=== PATIENT | female | born 1960 | race Caucasian/White ===

== ENCOUNTER 2017-02-03 09:09 | Emergency (ER) | payer OTHER ==
[2017-02-03 09:34] VITALS: BMI 30.2
[2017-02-03] MEDS ORDERED: Morphine 4 mg/ml ISec IVP STA (09:48)
[2017-02-03 09:57] VITALS: RESP 18; TEMP 98.2; O2SAT 100
[2017-02-03 10:12] LABS: PH,URINE 6.5 (4.7-8.0); URINE BILIRUBIN NEGATIVE (NEGATIVE); URINE BLOOD MODERATE (NEGATIVE); URINE GLUCOSE (UA) NEGATIVE (NEGATIVE); URINE KETONE NEGATIVE (NEGATIVE); URINE LEUKOCYTE ESTERASE SMALL Leu/uL (NEGATIVE); URINE PROTEIN NEGATIVE mg/dL (<30 mg/dL); URINE UROBILINOGEN 0.2 E.U./dL (<1 E.U./dL)
[2017-02-03 10:13] LABS: BASO # 0.02 K/mm3 (0.0-2.0); BASO % 0.4 % (0.0-3.0); EOS # 0.1 (0.0-0.7); EOS % 1.1 % (1.5-5.0); GRAN # 2.96 (1.4-6.5); GRAN % 52.4 % (50.0-68.0); HEMATOCRIT 40.8 % (36.0-48.0); LYMPH # 2.1 (1.2-3.4); LYMPH % 37.9 % (22.0-35.0); MEAN CELL VOLUME 89.3 fl (80.0-105.0); MEAN CORPUSCULAR HEMOGLOBIN 30.6 pg (25.0-35.0); MEAN CORPUSCULAR HGB CONC 34.3 g/dl (31.0-37.0); MEAN PLATELET VOLUME 9.5 fl (7.0-11.0); MONO # 0.5 (0.1-0.6); MONO % 8.2 % (1.0-6.0); RED CELL DISTRIBUTION WIDTH 12.6 % (11.5-14.5); URINE APPEARANCE SLIGHT-CLOUDY (CLEAR); URINE COLOR LIGHT YELLOW (YELLOW); WHITE BLOOD COUNT 5.6 10^3/ul (4.5-11.0)
[2017-02-03 10:23] LABS: ALB/GLOB RATIO 1.3 (1.1-1.8); ALKALINE PHOSPHATASE 78 U/L (38-126); ALT/SGPT 39 U/L (7-56); AST/SGOT 30 U/L (14-36); BILIRUBIN,TOTAL 0.6 mg/dL (0.2-1.3); BLOOD UREA NITROGEN 20 mg/dL (7-21); CALCIUM 9.7 mg/dL (8.4-10.5); CARBON DIOXIDE 28 mmol/L (21-33); CHLORIDE 104 mmol/L (98-107); GFR AFRICAN-AMERICAN > 60; GLUCOSE,RANDOM 88 mg/dL (70-110); LIPASE 101 U/L (23-300); POTASSIUM 4.4 mmol/L (3.6-5.0); SODIUM 143 mmol/L (132-148); TOTAL PROTEIN 7.4 g/dL (5.8-8.3)
--- NOTE | 2017-02-03 10:24 | ED PDOC ---
Arrival/HPI - General Chief Complaint: Abdominal Pain Time Seen by Provider: 02/03/17 09:30 Historian: Patient - History of Present Illness Narrative History of Present Illness (Text): 02/03/17 10:20 56 yo F complains of waking up yesterday morning developing constant diffuse abdominal pain, with low back pain. Patient states that she had developed mid and low back pain last week and she was concerned the pain was from her kidneys therefore she saw her PMD and had an outpatient ultrasound done which was normal. She adds that the pain was mostly in the lower abdomen but is now mostly diffuse in her abdomen. Otherwise: (-) trauma, (-) injury, (-) nausea, (- ) vomiting, (-) diarrhea, (-) fever, (-) melena, (-) hematochezia, (-) urinary symptoms. Has no history of prior abdominal surgery. PMD Jayme Past Medical History - Provider Review Nursing Documentation Reviewed: Yes - Reproductive Menopause: Yes - Cardiac Hx Cardiac Disorders: No - Pulmonary Hx Respiratory Disorders: No - Neurological Hx Neurological Disorder: No - HEENT Hx HEENT Disorder: No - Renal Hx Renal Disorder: No - Endocrine/Metabolic Hx Endocrine Disorders: No - Hematological/Oncological Hx Blood Disorders: No - Integumentary Hx Dermatological Disorder: No - Musculoskeletal/Rheumatological Hx Musculoskeletal Disorders: No - Gastrointestinal Hx Gall Bladder Disease: Yes - Genitourinary/Gynecological Hx Genitourinary Disorders: No - Psychiatric Hx Depression: No Hx Emotional Abuse: No Hx Physical Abuse: No Hx Substance Use: No - Surgical History Hx Cholecystectomy: Yes Hx Eye Surgery: Yes (left eye) - Anesthesia Hx Anesthesia: Yes Hx Anesthesia Reactions: No Hx Malignant Hyperthermia: No - Suicidal Assessment Feels Threatened In Home Enviroment: No Family/Social History - Physician Review Nursing Documentation Reviewed: Yes Family/Social History: No Known Family HX Smoking Status: Never Smoked Hx Alcohol Use: No Hx Substance Use: No Hx Substance Use Treatment: No Allergies/Home Meds Allergies/Adverse Reactions: Allergies No Known Allergies Allergy (Verified 10/17/15 22:41) Review of Systems - Review of Systems Constitutional: absent: Fatigue, Weight Change, Fevers Respiratory: absent: SOB, Cough, Sputum Cardiovascular: absent: Chest Pain, Palpitations, Edema Gastrointestinal: Abdominal Pain. absent: Nausea, Vomiting, Appetite Changes Genitourinary Female: absent: Dysuria, Frequency, Hematuria Musculoskeletal: Back Pain. absent: Arthralgias, Neck Pain Skin: absent: Rash, Pruritis, Skin Lesions Physical Exam - Physical Exam Narrative Physical Exam (Text): 02/03/17 10:22 GENERAL APPEARANCE: Patient is awake, alert, oriented x 3, in moderate painful distress, is crying. SKIN: Warm, dry; (-) cyanosis. EYES: (-) conjunctival pallor, (-) scleral icterus. ENMT: Mucous membranes moist. NECK: (-) tenderness, (-) stiffness, (-) lymphadenopathy. CHEST AND RESPIRATORY: (-) rales, (-) rhonchi, (-) wheezes; breath sounds equal bilaterally. HEART AND CARDIOVASCULAR: (-) irregularity; (-) murmur, (-) gallop. ABDOMEN AND GI: (-) distention. Bowel sounds active; (+) diffuse abdominal tenderness, (-) guarding, (-) rebound, (-) palpable masses, (-) CVA tenderness. BACK: (-) midline tenderness, (-) paravertebral tenderness. EXTREMITIES: (-) deformity, (-) edema, (+) distal pulses. NEURO AND PSYCH: Mental status as above; (-) focal findings. Vital Signs Temp Pulse Resp BP Pulse Ox 02/03/17 13:11 68 18 138/74 100 02/03/17 11:30 71 18 142/75 100 02/03/17 10:57 74 18 146/81 100 02/03/17 09:09 98.2 F 72 18 140/75 100 Medical Decision Making ED Course and Treatment: 02/03/17 10:22 56 yo F complains of waking up yesterday morning developing constant diffuse abdominal pain, with low back pain. DDx: R/o Diverticulitis, colitis, consider renal colic Plan: -- Labs -- IV fluids -- Urinalysis -- CXR -- Morphine / Zofran / Pepcid -- Reassess and disposition -- CT AP On re-evaluation, patient continues to c/o abdominal pain despite being medicated with morphine IV. On exam, patient is laying in bed comfortably in mild painful distress. Abdomen remains soft with mild diffuse tenderness, no guarding, no rebound, no CVA tenderness. Patient medicated with dilaudid 1 mg IV and zofran [address] still pending. Labs reviewed : UA shows evidence of blood and UTI, urine cx sent. Rocephin [address] still pending. Patient notified of UA results. On second re-evaluation, patient is laying in bed comfortably with improvement of pain. On exam, abdomen remains soft with no tenderness, no guarding, no rebound, no CVA tenderness. CT results reviewed and d/w the patient and her family in great detail. Notified of likely dx of UTI with possible pyelonephritis. Based on history, exam and diagnostic results plan will be for outpatient f/u. Patient instructed to follow up with primary care physician in 1-2 days without fail. Advised to take medication as prescribed. Return to the emergency room at any time for any new or worsening symptoms. Patient states she fully agrees with and understands discharge instructions. States that she agrees with the plan and disposition. Verbalized and repeated discharge instructions and plan. I have given the patient opportunity to ask any additional questions. - Lab Interpretations Lab Results: 02/03/17 09:35 02/03/17 09:35 Lab Results 02/03/17 10:50: pO2 112 H, VBG pH 7.33, VBG pCO2 53.0, VBG HCO3 27.9, VBG Total CO2 29.5 H, VBG O2 Sat (Calc) 98.8 H, VBG Base Excess 1.0, VBG Potassium 4.0, Glucose 83, Lactate 1.7, FiO2 21.0, Sodium 141.0, Chloride 110.0 H, Venous Blood Potassium 4.0 02/03/17 09:35: Sodium 143, Potassium 4.4, Chloride 104, Carbon Dioxide 28, Anion Gap 15, BUN 20, Creatinine 0.7, Est GFR ( Amer) > 60, Est GFR (Non- Af Amer) > 60, Random Glucose 88, Calcium 9.7, Total Bilirubin 0.6, AST 30, ALT 39, Alkaline Phosphatase 78, Total Protein 7.4, Albumin 4.2, Globulin 3.2, Albumin/Globulin Ratio 1.3, Lipase 101 02/03/17 09:35: Urine Color Light yellow, Urine Appearance Slight-cloudy, Urine pH 6.5, Ur Specific Vale 1.015, Urine Protein Negative, Urine Glucose (UA) Negative, Urine Ketones Negative, Urine Blood Moderate H, Urine Nitrate Positive H, Urine Bilirubin Negative, Urine Urobilinogen 0.2, Ur Leukocyte Esterase Small H, Urine RBC 2 - 5, Urine WBC 5 - 10, Ur Epithelial Cells 0 - 2, Urine Bacteria Many 02/03/17 09:35: PT 11.9, INR 1.08, APTT 28.6 02/03/17 09:35: WBC 5.6 D, RBC 4.57, Hgb 14.0, Hct 40.8, MCV 89.3, MCH 30.6, MCHC 34.3, RDW 12.6, Plt Count 255, MPV 9.5, Gran % 52.4, Lymph % (Auto) 37.9 H , Gooding % (Auto) 8.2 H, Eos % (Auto) 1.1 L, Baso % (Auto) 0.4, Gran # 2.96, Lymph # 2.1, Gooding # 0.5, Eos # 0.1, Baso # 0.02 I have reviewed the lab results: Yes (UA: +blood and evidence of UTI, rest of the labs wnl) - RAD Interpretation Narrative RAD Interpretations (Text): 02/03/17 13:15 CT A/P w/ IV contrast : FINDINGS: LOWER THORAX: Dependent atelectasis at the lung bases. LIVER: Hepatopedal blood flow. Fatty infiltration manifest ultrasonographically as increased Incidental finding(s): Simple cyst near the jess hepatis 2.1 x 3 cm. Finding unchanged compared to the prior study. GALLBLADDER AND BILE DUCTS: Status post cholecystectomy. No abnormality is seen in the gallbladder fossa. Item PANCREAS: Unremarkable. No gross lesion or ductal dilatation. SPLEEN: Unremarkable. ADRENALS: Unremarkable. No mass. KIDNEYS AND URETERS: Unremarkable. No hydronephrosis. No solid mass. VASCULATURE: Unremarkable. No aortic aneurysm. BOWEL: Unremarkable. No obstruction. No gross mural thickening. APPENDIX: Normal appendix. PERITONEUM: Unremarkable. No free fluid. No free air. LYMPH NODES: Unremarkable. No enlarged lymph nodes. BLADDER: Unremarkable. REPRODUCTIVE: Unremarkable. BONES: No acute fracture. OTHER FINDINGS: None. IMPRESSION: No acute findings related to/accounting for the clinical presentation. Additional benign and/or incidental findings described above. Radiology Orders: 02/03/17 09:49 ABDOMEN & PELVIS [ABD & PELVIS IV CONTRAST ONLY] [CT] Stat - Medication Orders Current Medication Orders: Discontinued Medications Famotidine (Pepcid) 20 mg IVP STAT STA Stop: 02/03/17 09:49 Last Admin: 02/03/17 10:08 Dose: 20 mg IVP Administration Document 02/03/17 10:08 SF (Rec: 02/03/17 10:09 SF [id number]) Charges for Administration # of IVP Administrations 1 Hydromorphone HCl (Dilaudid) 1 mg IVP STAT STA Stop: 02/03/17 10:40 Last Admin: 02/03/17 10:56 Dose: 1 mg MAR Pain Assessment Document 02/03/17 10:56 SF (Rec: 02/03/17 10:57 SF [facility] [id number]) Pain Reassessment Is this a pain reassessment? Yes Sleep Is patient sleeping during reassessment? No Presence of Pain Presence of Pain Yes Pain Scale Used Pain Scale Used Numeric Location Pain Location Body Site Abdomen Description Description Constant IVP Administration Document 02/03/17 10:56 SF (Rec: 02/03/17 10:57 SF [id number]) Charges for Administration # of IVP Administrations 1 Ceftriaxone Sodium (Rocephin 1 Gram Ivpb) 1 g in 100 mls @ 200 mls/hr IVPB STAT STA PRN Reason: Protocol Stop: 02/03/17 11:33 Last Admin: 02/03/17 11:35 Dose: 200 mls/hr eMAR Start Stop Document 02/03/17 11:35 SF (Rec: 02/03/17 11:35 SF [id number]) Intravenous Solution Start Date 02/03/17 Start Time 11:35 End Date 02/03/17 End time 12:05 Total Infusion Time 30 Morphine Sulfate (Morphine) 4 mg IVP STAT STA Stop: 02/03/17 09:49 Last Admin: 02/03/17 10:09 Dose: 4 mg MAR Pain Assessment Document 02/03/17 10:09 SF (Rec: 02/03/17 10:09 SF [facility] [id number]) Pain Reassessment Is this a pain reassessment? Yes Sleep Is patient sleeping during reassessment? No Presence of Pain Presence of Pain Yes Pain Scale Used Pain Scale Used Numeric Location Pain Location Body Site Abdomen Description Description Constant IVP Administration Document 02/03/17 10:09 SF (Rec: 02/03/17 10:09 [id number]) Charges for Administration # of IVP Administrations 1 Ondansetron HCl (Zofran Inj) 4 mg IVP STAT STA Stop: 02/03/17 09:49 Last Admin: 02/03/17 10:08 Dose: 4 mg IVP Administration Document 02/03/17 10:08 SF (Rec: 02/03/17 10:08 [id number]) Charges for Administration # of IVP Administrations 1 Ondansetron HCl (Zofran Inj) 4 mg IVP STAT STA Stop: 02/03/17 10:40 Last Admin: 02/03/17 10:56 Dose: 4 mg IVP Administration Document 02/03/17 10:56 SF (Rec: 02/03/17 10:56 [id number]) Charges for Administration # of IVP Administrations 1 - PA / COMMUNITY PHARMACIST / Resident Statement MD/DO has reviewed & agrees with the documentation as recorded. Disposition/Present on Arrival - Present on Arrival Any Indicators Present on Arrival: No History of DVT/PE: No History of Uncontrolled Diabetes: No Urinary Catheter: No History of Decub. Ulcer: No History Surgical Site Infection Following: None - Disposition Have Diagnosis and Disposition been Completed?: No Diagnosis: Abdominal pain, UTI (urinary tract infection) Disposition: HOME/ ROUTINE Disposition Time: 13:00 Patient Plan: Discharge Condition: IMPROVED Discharge Instructions (ExitCare): Acute Abdominal Pain (ED), Urinary Tract Infection in Women (ED) Print Language: CHINESE Additional Instructions: Thank you for letting us take care of you today. You were treated for abdominal pain, UTI. The emergency medical care you received today was directed at your acute symptoms. If you were prescribed any medication, please fill it and take as directed. It may take several days for your symptoms to resolve. Return to the Emergency Department if your symptoms worsen, do not improve, or if you have any other problems. Please contact your doctor in 2 days for re-evaluation and follow up. Bring any paperwork you were given at discharge with you along with any medications you are taking to your follow up visit. Our treatment cannot replace ongoing medical care by a primary care provider (PCP) outside of the emergency department. Thank you for allowing the [facility] team to be part of your care today. If you had a CT scan: A Radiologist will review the ED reading if any change in treatment is needed we will contact you. Prescriptions: Meloxicam [Mobic] 15 mg PO DAILY PRN #20 tab PRN Reason: Pain, Moderate (4-7) Nitrofurantoin Macrocrystals [Macrobid] 100 mg PO BID #20 cap Referrals: Ilan Delacruz APN [Primary Care Provider] - Follow up with primary Forms: [facility] (Serbian), WORK NOTE
[2017-02-03 10:25] LABS: INR 1.08 (0.93-1.08)
[2017-02-03 10:26] LABS: PARTIAL THROMBOPLASTIN TIME 28.6 Seconds (25.1-36.5)
[2017-02-03 10:31] LABS: URINE EPITHELIAL CELLS 0 - 2 /hpf (0-5)
[2017-02-03 10:32] LABS: URINE BACTERIA MANY (NEG)
[2017-02-03] MEDS ORDERED: Iohexol 350 MG/100 ML VIAL ONE (10:38)
[2017-02-03] MEDS ORDERED: HYDROmorphone 1 mg/ml ISec IVP STA (10:39)
[2017-02-03 11:01] LABS: VENOUS BLOOD PH 7.33 (7.32-7.43)
[2017-02-03] MEDS ORDERED: cefTRIAXone 1 gm 1 G/100 ML BAG IVPB STA (11:04)
--- NOTE | 2017-02-03 12:35 | CT ---
PROCEDURE: CT Abdomen and Pelvis with contrast HISTORY: Unspecified abdominal pain. COMPARISON: 04/21/2013 and 10/18/[address] scans of the abdomen and pelvis TECHNIQUE: Contrast dose: 100 cc Omnipaque 300 Radiation dose: Total exam DLP = 789.00 mGy-cm. This CT exam was performed using one or more of the following dose reduction techniques: Automated exposure control, adjustment of the mA and/or kV according to patient size, and/or use of iterative reconstruction technique. FINDINGS: LOWER THORAX: Dependent atelectasis at the lung bases. LIVER: Hepatopedal blood flow. Fatty infiltration manifest ultrasonographically as increased Incidental finding(s): Simple cyst near the jess hepatis 2.1 x 3 cm. Finding unchanged compared to the prior study. GALLBLADDER AND BILE DUCTS: Status post cholecystectomy. No abnormality is seen in the gallbladder fossa. Item PANCREAS: Unremarkable. No gross lesion or ductal dilatation. SPLEEN: Unremarkable. ADRENALS: Unremarkable. No mass. KIDNEYS AND URETERS: Unremarkable. No hydronephrosis. No solid mass. VASCULATURE: Unremarkable. No aortic aneurysm. BOWEL: Unremarkable. No obstruction. No gross mural thickening. APPENDIX: Normal appendix. PERITONEUM: Unremarkable. No free fluid. No free air. LYMPH NODES: Unremarkable. No enlarged lymph nodes. BLADDER: Unremarkable. REPRODUCTIVE: Unremarkable. BONES: No acute fracture. OTHER FINDINGS: None. IMPRESSION: No acute findings related to/accounting for the clinical presentation. Additional benign and/or incidental findings described above.
[2017-02-03 13:11] VITALS: BP 138/74; PULSE 68
== END 2017-02-03 13:40 | disposition home or self-care (01) ==
LOC: ED 09:09
DX: N39.0 Urinary tract infection, site not specified (principal); R10.9 Unspecified abdominal pain
CPT/HCPCS: 74177; 80053; 81001; 82803; 83690; 85025; 85610; 85730; 87086; 87181; 96365; 96375; 96376; 99285; J1170; J2270; J2405; Q9967

== ENCOUNTER 2018-04-16 16:25 | Emergency (ER) | payer OTHER ==
[2018-04-16 16:56] VITALS: BMI 31.8
--- NOTE | 2018-04-16 17:17 | ED PDOC ---
Arrival/HPI - General Chief Complaint: Dizziness/Lightheaded Time Seen by Provider: 04/16/18 16:48 Historian: Patient - History of Present Illness Narrative History of Present Illness (Text): 04/16/18 17:14 57 year old female, with past medical history of cholcystectomy, and left eye surgery, presents to the ED for evaluation of dizziness since past 15 days. Patient describes the sensation as head spinning associated with nausea, unimproved after taking unknown medication prescribed by her PMD 2 weeks ago. Patient reports waking up this morning with worsening dizziness, prompting her to present to the ED more medical evaluation. Patient denies any other associated somatic complaints. Patient denies any fevers, chills, headache, chest pain, shortness of breath, dyspnea on exertion, cough, abdominal pain, nausea, vomiting, diarrhea, back pain, neck pain, or any other complaints. Time/Duration: > week Symptom Onset: Gradual Symptom Course: Unchanged Activities at Onset: Light Context: Home Past Medical History - Provider Review Nursing Documentation Reviewed: Yes - Reproductive Menopause: Yes - Cardiac Hx Cardiac Disorders: No - Pulmonary Hx Respiratory Disorders: No - Neurological Hx Neurological Disorder: No - HEENT Hx HEENT Disorder: No - Renal Hx Renal Disorder: No - Endocrine/Metabolic Hx Endocrine Disorders: No - Hematological/Oncological Hx Blood Disorders: No - Integumentary Hx Dermatological Disorder: No - Musculoskeletal/Rheumatological Hx Musculoskeletal Disorders: No - Gastrointestinal Hx Gastrointestinal Disorders: Yes Hx Gall Bladder Disease: Yes - Genitourinary/Gynecological Hx Genitourinary Disorders: Yes Hx Urinary Tract Infection: Yes - Psychiatric Hx Psychophysiologic Disorder: No Hx Substance Use: No - Surgical History Hx Cholecystectomy: Yes Hx Eye Surgery: Yes (left eye) - Anesthesia Hx Anesthesia: Yes Hx Anesthesia Reactions: No Hx Malignant Hyperthermia: No - Suicidal Assessment Feels Threatened In Home Enviroment: No Family/Social History - Physician Review Nursing Documentation Reviewed: Yes Family/Social History: Unknown Family HX Smoking Status: Never Smoked Hx Alcohol Use: No Hx Substance Use: No Hx Substance Use Treatment: No Allergies/Home Meds Allergies/Adverse Reactions: Allergies No Known Allergies Allergy (Verified 04/16/18 16:52) Home Medications: Home Meds Medication Instructions Recorded Confirmed Alendronate [Fosamax] 1 tab PO Q7D 03/05/19 03/05/19 Review of Systems - Physician Review All systems were reviewed & negative as marked: Yes - Review of Systems Constitutional: absent: Fevers Respiratory: absent: SOB, Cough Cardiovascular: absent: Chest Pain Gastrointestinal: Nausea. absent: Abdominal Pain, Diarrhea, Vomiting Genitourinary Female: absent: Dysuria, Urine Output Changes Musculoskeletal: absent: Back Pain, Neck Pain Skin: absent: Rash Neurological: Dizziness. absent: Headache, Focal Weakness Psychiatric: absent: Anxiety Physical Exam Vital Signs Reviewed: Yes Vital Signs Temp Pulse Resp BP Pulse Ox 04/16/18 16:55 98.4 F 67 16 162/89 H 100 04/16/18 16:53 98.2 F 77 16 141/81 99 Temperature: Afebrile Blood Pressure: Normal Pulse: Regular Respiratory Rate: Normal Appearance: Positive for: Well-Appearing, Non-Toxic, Comfortable Pain Distress: None Mental Status: Positive for: Alert and Oriented X 3 - Systems Exam Head: Present: Atraumatic, Normocephalic Pupils: Present: PERRL Extroacular Muscles: Present: EOMI Conjunctiva: Present: Normal Mouth: Present: Moist Mucous Membranes Neck: Present: Normal Range of Motion. No: JVD Respiratory/Chest: Present: Clear to Auscultation, Good Air Exchange. No: Respiratory Distress, Accessory Muscle Use Cardiovascular: Present: Regular Rate and Rhythm, Normal S1, S2. No: Murmurs Abdomen: No: Tenderness, Distention, Peritoneal Signs Back: Present: Normal Inspection Upper Extremity: Present: Normal Inspection. No: Cyanosis, Edema Lower Extremity: Present: Normal Inspection, Neurovascularly Intact, Other (Motor strength 5/5). No: Edema Neurological: Present: GCS=15, CN II-XII Intact, Speech Normal, Motor Func Grossly Intact, Normal Sensory Function, Other (finger to nose okay, no pronator drift) Skin: Present: Warm, Dry, Normal Color. No: Rashes Psychiatric: Present: Alert, Oriented x 3, Normal Insight, Normal Concentration Medical Decision Making ED Course and Treatment: 04/16/18 17:18 Impression: 57 year old female presents to the ED for evaluation of dizziness and nausea since 15 days. Differential Diagnosis included but are not limited to: -- Dizziness r/o ACS -- Vertigo Plan: -- Labs -- Meclizine -- CT of head -- Orthostatic vital signs -- EKG -- Reassess and disposition Prior Visits: Notes and results from previous visits were reviewed. Progress Notes: 04/16/18 19:46 CT head reviewed by radiologist, shows: IMPRESSION: Sinusitis. No acute intracranial abnormality. Progress note: pt is feeling better and wants to go home. All labs and ct head are unremarkable. Will dc with debrox, meclizine and she can follow up with her pcp. - RAD Interpretation Telemarketing Sales Representative: Radiologist - Scribe Statement The provider has reviewed the documentation as recorded by the Scribe Allen Pop. All medical record entries made by the Scribe were at my direction and personally dictated by me. I have reviewed the chart and agree that the record accurately reflects my personal performance of the history, physical exam, medical decision making, and the department course for this patient. I have also personally directed, reviewed, and agree with the discharge instructions and disposition. Disposition/Present on Arrival - Present on Arrival Any Indicators Present on Arrival: No History of DVT/PE: No History of Uncontrolled Diabetes: No Urinary Catheter: No History of Decub. Ulcer: No History Surgical Site Infection Following: None - Disposition Have Diagnosis and Disposition been Completed?: Yes Diagnosis: Dizziness Disposition: HOME/ ROUTINE Disposition Time: 20:54 Condition: IMPROVED Discharge Instructions (ExitCare): Dizziness, Nonvertigo, (DC) Additional Instructions: Please use debrox for cerumen impaction and follow up with your pcp. Take meclizine for dizziness as directed. Prescriptions: Carbamide Peroxide [Debrox 15 Ml] 5 - 10 drop OT Q12 #1 bottle Meclizine [Meclizine*] 25 mg PO Q8 #20 tab Referrals: Ilan Delacruz APN [Primary Care Provider] - Follow up with primary Forms: [email or web address] (Upper Sorbian)
[2018-04-16 17:51] LABS: BASO # 0.01 K/mm3 (0.0-2.0); BASO % 0.2 % (0.0-3.0); EOS % 0.6 % (1.5-5.0); HEMOGLOBIN 14.1 g/dL (12.0-16.0); LYMPH # 2.6 (1.2-3.4); LYMPH % 40.2 % (22.0-35.0); MEAN CELL VOLUME 89.1 fl (80.0-105.0); MEAN CORPUSCULAR HEMOGLOBIN 30.2 pg (25.0-35.0); MEAN CORPUSCULAR HGB CONC 33.9 g/dl (31.0-37.0); MEAN PLATELET VOLUME 9.1 fl (7.0-11.0); MONO # 0.6 (0.1-0.6); MONO % 8.8 % (1.0-6.0); RBC 4.67 10^6/uL (3.5-6.1); RED CELL DISTRIBUTION WIDTH 12.9 % (11.5-14.5); WHITE BLOOD COUNT 6.6 10^3/uL (4.5-11.0)
[2018-04-16 17:56] LABS: URINE BILIRUBIN NEGATIVE (NEGATIVE); URINE BLOOD SMALL (NEGATIVE); URINE GLUCOSE (UA) NEGATIVE (NEGATIVE); URINE LEUKOCYTE ESTERASE MODERATE Leu/uL (NEGATIVE); URINE PROTEIN NEGATIVE mg/dL (<30 mg/dL); URINE UROBILINOGEN 0.2 E.U./dL (<1 E.U./dL)
[2018-04-16 17:57] LABS: URINE APPEARANCE CLEAR (CLEAR); URINE COLOR LIGHT YELLOW (YELLOW)
[2018-04-16 18:05] LABS: URINE BACTERIA FEW /hpf; URINE EPITHELIAL CELLS 0 - 2 /hpf (0-5); URINE RBC 0 - 2 /hpf (0-2)
[2018-04-16 18:19] LABS: ALB/GLOB RATIO 1.2 (1.1-1.8); ALBUMIN 4.2 g/dL (3.0-4.8); ALT/SGPT 21 U/L (7-56); AST/SGOT 34 U/L (14-36); BLOOD UREA NITROGEN 13 mg/dL (7-21); CALCIUM 9.4 mg/dL (8.4-10.5); GFR NON-AFRICAN AMERICAN > 60
[2018-04-16 18:31] LABS: TROPONIN I < 0.01 ng/mL
--- NOTE | 2018-04-16 21:04 | CARD ---
APPROVED REPORT Date of service: 04/16/2018 EKG Measurement Heart [id number] <Conclusion> Sinus bradycardia Otherwise normal ECG
[2018-04-16 21:19] VITALS: BP 126/75; PULSE 80; RESP 17; TEMP 98.1; O2SAT 97
--- NOTE | 2018-04-17 08:24 | CT ---
Date of service: 04/16/2018 PROCEDURE: CT HEAD WITHOUT CONTRAST. HISTORY: Vertigo COMPARISON: None available. TECHNIQUE: Axial computed tomography images were obtained through the head/brain without intravenous contrast. Supplemental Coronal and Sagittal projections created and reviewed. Radiation dose: Total exam DLP = 850.24 mGy-cm. This CT exam was performed using one or more of the following dose reduction techniques: Automated exposure control, adjustment of the mA and/or kV according to patient size, and/or use of iterative reconstruction technique. FINDINGS: HEMORRHAGE: No intracranial hemorrhage. BRAIN: No mass effect or edema. No atrophy or chronic microvascular ischemic changes. VENTRICLES: Unremarkable. No hydrocephalus. CALVARIUM: Unremarkable. PARANASAL SINUSES: Unremarkable as visualized. No significant inflammatory changes. MASTOID AIR CELLS: Unremarkable as visualized. No inflammatory changes. OTHER FINDINGS: None. IMPRESSION: No acute intracranial abnormalities. No significant findings to account for the clinical presentation. Concordant results (preliminary interpretation) provided by [facility]. Procedure Completed: 19:15 Preliminary Report: Interpreted and electronically signed: 19:34. Final Interpretation: 08:20. April 17, 2018
== END 2018-04-16 21:21 | disposition home or self-care (01) ==
LOC: ED 16:25
DX: R42 Dizziness and giddiness (principal)